=== PATIENT | female | born 1955 | race Two or more races ===

== ENCOUNTER 2022-07-07 06:33 | Outpatient (CLI) | payer OTHER | END 2022-07-07 06:34 | disposition home or self-care (01) | LOC: LAB 06:33 | PROVIDERS: ATTEND Internal Medicine Gastroenterology | DX: D64.9 Anemia, unspecified (principal); K86.9 Disease of pancreas, unspecified; C18.9 Malignant neoplasm of colon, unspecified; E74.39 Other disorders of intestinal carbohydrate absorption; C22.9 Malignant neoplasm of liver, not specified as primary or secondary; E06.9 Thyroiditis, unspecified ==

== ENCOUNTER 2022-07-07 07:26 | Outpatient (CLI) | payer OTHER | END 2022-07-07 07:35 | disposition home or self-care (01) | LOC: MAMO-SONO 07:26 | PROVIDERS: ATTEND Internal Medicine Gastroenterology | DX: K80.20 Calculus of gallbladder without cholecystitis without obstruction (principal); C50.919 Malignant neoplasm of unspecified site of unspecified female breast ==

== ENCOUNTER 2022-07-12 06:35 | Emergency (ER) | payer OTHER ==
[~2022-07-12] VITALS: Ht 152.4 cm; Wt 40.8 kg
[2022-07-12] MEDS ORDERED: FAMOTIDINE40 MG (06:45)
[2022-07-12] MEDS ORDERED: PANTOPRAZOLE SO40 MG (06:45)
== END 2022-07-12 17:56 | disposition home or self-care (01) ==
LOC: ER 06:35
DX: R10.32 Left lower quadrant pain (principal); Z20.822 Contact with and (suspected) exposure to COVID-19; K59.00 Constipation, unspecified